=== PATIENT | female | born 1965 | race Caucasian/White ===

== ENCOUNTER → 2018-03-23 06:25 | Outpatient (CLI) | payer OTHER, SELFPAY ==
--- NOTE | 2018-03-23 09:22 | STRESSREP ---
Stress Test Report Exercise myocardial perfusion stress test. 52-year-old lady with a history of chest pain. Medications metoprolol hydrochlorothiazide. Stress protocol: Resting EKG demonstrates normal sinus rhythm with a rate of 63 bpm normal intervals and noted resting blood pressure is 140/92 mmHg. The patient exercised according to regular Meery protocol for total duration of 7 minutes and 30 seconds. Patient completed 1 minute and 30 seconds to stage III of the Emery protocol. The maximum heart rate attained was 155 bpm which was 91% of maximum predicted heart rate the maximum workload attained was 9.3 metabolic equivalents. At rest there were no ST or T-wave changes noted suggest ischemia at peak exercise no ST or T-wave changes were noted suggest ischemia. No clinical angina was noted the test was terminated due to leg fatigue. Resting blood pressure was 140/92 mmHg with a peak blood pressure of 218/94 mmHg suggesting hypertensive response to exercise. Myocardial perfusion protocol. 11.6 mCi of technetium 99m sestamibi was injected at rest. The patient exercised according to regular Emery protocol for total duration of 7-1/2 minutes at peak exercise 33.3 mCi of technetium 99m sestamibi was injected stress images were obtained stress and rest images were reconstructed and compared in the short axis vertical long and horizontal long axis. Gated images were also obtained pre- Perfusion SPECT analysis: Review of the stress images demonstrate normal uptake of tracer noted in all areas of the myocardium. The resting images similarly demonstrate normal uptake of tracer noted in all areas of the myocardium no areas of reversibility are noted suggest ischemia no previous infarct is noted. Gated SPECT analysis. The gated ejection fraction is noted to be 74%. Conclusion: Normal exercise myocardial perfusion stress test at a moderate workload. Preserved ejection fraction. Hypertensive response to exercise. Good functional capacity.
== END ==
PROVIDERS: Family Provider Internal Medicine; PCP Internal Medicine; Visit Provider Internal Medicine
DX: I35.8 Other nonrheumatic aortic valve disorders (principal)
CPT/HCPCS: 78452; 93017; A9500; A4216

== ENCOUNTER → 2020-06-05 13:54 | Outpatient (CLI) | payer OTHER, SELFPAY ==
--- NOTE | 2020-06-05 13:58 | RAD_ITS ---
STUDY: X-RAY - RIGHT FOOT CLINICAL: Heel and lateral foot pain. TECHNIQUE: 3 view(s) of the foot. COMPARISON: None. FINDINGS: There is a small plantar calcaneal enthesophyte. Otherwise, unremarkable talus, calcaneus, and tarsal bones. There is a type II accessory navicular. Normal visualized subtalar, talonavicular, calcaneocuboid, tarsal and tarsometatarsal articulations. Normal metatarsi. Normal metatarsophalangeal joint of the great toe. Normal tibial and fibular sesamoid bones. Normal interphalangeal joint of the great toe. Normal phalanges of the great toe. Normal second through fifth metatarsophalangeal joints. Normal interphalangeal joints and phalanges of the lesser toes. The soft tissue structures are unremarkable. RAD/Foot min 3 Views IMPRESSION: Small plantar calcaneal enthesophyte. Electronically Signed: Fernando Snell MD at 15:30 EDT Tel , Service support ,
--- NOTE | 2020-06-05 13:59 | RAD_ITS ---
STUDY: X-RAY - LEFT FOOT CLINICAL: Heel pain. TECHNIQUE: 3 view(s) of the foot. COMPARISON: None. FINDINGS: There is a plantar calcaneal enthesophyte. Otherwise, unremarkable talus, calcaneus, and tarsal bones. There is a type II accessory navicular. Normal visualized subtalar, talonavicular, calcaneocuboid, tarsal and tarsometatarsal articulations. Normal metatarsi. Normal metatarsophalangeal joint of the great toe. Normal tibial and fibular sesamoid bones. Normal interphalangeal joint of the great toe. Normal phalanges of the great toe. Normal second through fifth metatarsophalangeal joints. Normal interphalangeal joints and phalanges of the lesser toes. The soft tissue structures are unremarkable. RAD/Foot min 3 Views IMPRESSION: Plantar calcaneal enthesophyte. Electronically Signed: Fernando Snell MD at 15:30 EDT Tel , Service support ,
== END ==
PROVIDERS: PCP Internal Medicine; Referring Provider Internal Medicine; Visit Provider Internal Medicine
DX: M79.671 Pain in right foot (principal); M79.672 Pain in left foot
CPT/HCPCS: 73630

== ENCOUNTER 2020-07-12 14:00 | Outpatient (RCR) | payer OTHER, SELFPAY ==
--- NOTE | 2020-06-09 11:07 | HP.PTEVAL_ITS ---
Patient's Visit Information HETAL BAL is a 54 year old F referred to Physical Therapy by Dr. Cassie Womack DO with a diagnosis of B plantarfascitis. Date of Evaluation: 06/09/20 Physical Therapist: Urban Sanchez, PT, ATC - Visit Plan Frequency: 1x/Week Duration: 2 Weeks Plan: US to PF, DTR, stretching, and HEP - Subjective Pt reports her heels have been sore intermittently for several years. Pt reports this episode began 1 month ago. Pt reports her pain has progressively worsened over this time span. Pt notes she had xrays taken which revealed heel spurs in both feet. Pt reports she has been stretching her calves and rolling her plantarfascia with a frozen water bottle, but the pain continues to remain. Pt reports she is to see a water mangle tender in the near future. No sleep difficulty secondary to pain. Pt reports she is unable to run at this time secondary to pain. Pt also reports her exercise routine is severely limited due to her pain. No tingling or numbness in LE's. 2/10 pain at rest, 10/10 pain at worst. - Pain B heels Pain Intensity (Out of 10): 2 Pain Intensity Range: 10 - Objective Palpation: Pt is very sore on the ant portion of calcaneous. No obvious deformity. Neuro: B LE sensation is WNL to light touch. B patellar reflex= 2/3. ROM: R ankle DF= 0, PF= 65 degrees. L ankle DF= -5, PF= 65 degrees. MMT: 5/5 throughout - Goals Goal 1:: I with HEP Goal Time Frame: 2 Weeks - Rehabilitation Potential Physical Therapy Diagnosis: B heel pain, limited ankle DF ROM, and difficulty with exercise secondary to pain Rehabilitation Potential: Good - Anticipated Interventions Patient/Client Instruction: Educate patient on: Condition, Plan of Care For the Purpose of:: To improve self management Therapeutic Exercise to Include: Flexibilty training For the Purpose of:: To decrease pain, To increase ROM Manual Therapy Techniques to Include: Soft tissue mobilization For the Purpose of:: To decrease pain, To increase ROM Ultrasound (thermal/non thermal): Yes For the Purpose of:: To decrease pain Thank you for the opportunity to evaluate your patient. For Medicare and Medicare HMO plans, please review the plan of care and approve it. It will need to be FAXED BACK to us at [phone] for Medicare purposes. For Medicare only, by signing this I certify the plan of care. Please let me know if there are questions or concerns regarding this plan of care. Physician Signature: Date:
--- NOTE | 2020-07-12 14:28 | HP.PTDCSUM ---
It has been my pleasure to treat HETAL BAL referred by Dr. Cassie Womack DO, with the diagnosis of B plantarfascitis for a total of 4 visit(s). Discharge Date: Please see the following information for a summary of their discharge status. Subjective: My pain is much better now B heels Pain Intensity (Out of 10): 2 % Improvement: 85 Objective/Function: Orthotics fit appropriately to shoe and pt educated on appropriate care for orthotics and skin breakdown. Goal 1:: I with HEP Goal Progress: Goal Met Plan: Discharge If there are questions or concerns regarding this patient's physical therapy, please feel free to call me at [phone]. Thank you for the referral of this patient. Sincerely, Urban Sanchez, PT, ATC
== END 2020-07-12 19:00 | disposition home or self-care (01) ==
LOC: PT 14:00
PROVIDERS: PCP Internal Medicine; Referring Provider Internal Medicine; Visit Provider Internal Medicine
DX: M72.2 Plantar fascial fibromatosis (principal); M79.672 Pain in left foot; M79.671 Pain in right foot
CPT/HCPCS: 97035; 97140; 97161; 97760; 97763

== ENCOUNTER → 2021-07-19 12:59 | Outpatient (CLI) | payer OTHER, SELFPAY ==
--- NOTE | 2021-07-19 13:04 | ECHOD_ITS ---
Reason For Study: AORTIC MURMUR Procedure This was a 2D Doppler, Color Flow transthoracic echocardiogram. The exam was of adequate technical quality. Exam performed in department. Left Ventricle Normal LV size. Left ventricular systolic function is normal. The estimated ejection fraction is 65 %. No evidence for diastolic dysfunction. No regional wall motion abnormalities noted. Right Ventricle Normal RV size. Normal systolic function. Atria The left atrium is moderately enlarged. Normal right atrium. No doppler evidence for ASD. Mitral Valve There is mild mitral annular calcification. Extension of the mitral annular calcification on the base of the posterior mitral valve leaflet. Mild (1+) mitral valve insufficiency. Tricuspid Valve Normal tricuspid valve. Mild tricuspid valve insufficiency. Right ventricular systolic pressure estimated to be 30 mmHg. Aortic Valve Trisinus/trileaflet aortic valve. 2D echocardiographic images (predominantly apical 5 chamber view) cannot exclude a subaortic valve membrane. Pulmonic Valve The pulmonic valve is not well visualized. Great Vessels Normal sized aortic root. Pericardium/Pleural No pericardial effusion. MMode/2D Measurements & Calculations LVIDd: 4.2 cm IVSd: 1.3 cm LVOT diam: 2.0 cm LVIDs: 2.7 cm LVPWd: 1.0 cm LVOT area: 3.1 cm2 RVDd: 3.0 cm FS: 34.9 % Ao root diam: 2.5 cm LAV(MOD-bp): 69.6 ml LA A4 area: 22.4 cm2 LAV(MOD-bp) Indexed: 35.4 ml/m2 LAV(MOD-sp2): 57.4 ml LAV(MOD-sp4): 78.2 ml LA dimension(2D): 3.8 cm RA A4 area: 13.0 cm2 Time Measurements MV dec time: 0.26 sec Doppler Measurements & Calculations MV E max melo: 116.8 cm/sec Lat Peak E' Melo: 9.6 cm/sec Med Peak E' Melo: 8.9 cm/sec MV A max melo: 97.7 cm/sec E/E' lat: 12.1 E/E' med: 13.2 MV E/A: 1.2 Ao V2 max: 252.8 cm/sec LV V1 max: 189.9 cm/sec SV(LVOT): 134.0 ml Ao max P.6 mmHg LV V1 max P.4 mmHg Ao V2 mean: 179.3 cm/sec LV V1 mean P.3 mmHg Ao mean P.2 mmHg LV V1 mean: 127.8 cm/sec Ao V2 VTI: 56.7 cm LV V1 VTI: 43.0 cm NAYE(I,D): 2.4 cm2 NAYE(V,D): 2.3 cm2 PA V2 max: 118.9 cm/sec TR max melo: 261.0 cm/sec TR max P.2 mmHg ECHO/Echo Complete Interpretation Summary Left ventricular systolic function is normal. The estimated ejection fraction is 65 %. The left atrium is moderately enlarged. There is mild mitral annular calcification. Extension of the mitral annular calcification on the base of the posterior mitr al valve leaflet. Mild (1+) mitral valve insufficiency. Mild tricuspid valve insufficiency. 2D echocardiographic images (predominantly apical 5 chamber view) cannot exclud e a subaortic valve membrane. Right ventricular systolic pressure estimated to be 30 mmHg. No evidence for diastolic dysfunction. Comment: Based upon the spectral Doppler pattern there does not appear to be ev idence suggestive of hemodynamically significant aortic valve restriction/stenosis. Ordering Physician: Cassie Womack Referring Physician: Cassie Womack Performed By: Jaqueline Forbes, RDJOSE, RVT
== END ==
PROVIDERS: PCP Internal Medicine; Referring Provider Internal Medicine; Visit Provider Internal Medicine
DX: I35.8 Other nonrheumatic aortic valve disorders (principal); I11.9 Hypertensive heart disease without heart failure
CPT/HCPCS: 93306